=== PATIENT | female | born 1995 | race Caucasian/White ===

== ENCOUNTER → 2019-01-20 22:14 | Outpatient (CLI) | payer BC ==
[~2019-01-20 22:14] MED LIST: BUSPAR10 MG PO; FOLATE0.4 MG; PRENAVITE1 TAB PO; PROBIOTIC250 MG
== END | disposition home or self-care (01) ==
LOC: D.LDO 22:14
PROVIDERS: ATTEND Obstetrics & Gynecology
DX: O26.899 Other specified pregnancy related conditions, unspecified trimester (principal); Z3A.30 30 weeks gestation of pregnancy

== ENCOUNTER → 2019-02-03 11:21 | Outpatient (CLI) | payer BC | END | disposition home or self-care (01) | LOC: D.LDO 11:21 | PROVIDERS: ATTEND Obstetrics & Gynecology | DX: O16.3 Unspecified maternal hypertension, third trimester (principal); Z3A.32 32 weeks gestation of pregnancy ==

== ENCOUNTER 2019-03-04 21:12 | Outpatient (CLI) | payer BC ==
[2019-03-04 21:53] LABS: APPEARANCE CLEAR (CLEAR); BILIRUBIN NEGATIVE (NEGATIVE); COLOR YELLOW (YELLOW); GLUCOSE NEGATIVE (NEGATIVE); KETONE NEGATIVE (NEGATIVE); NITRITE NEGATIVE (NEGATIVE); PROTEIN NEGATIVE (NEGATIVE); SPECIFIC GRAVITY 1.015 (1.005-1.020); UROBILINOGEN NORMAL (NORMAL)
[2019-03-04 21:56] LABS: BACTERIA MODERATE /hpf (NONE SEEN); EPITHELIAL CELLS OCC /hpf (0-5); WHITE CELLS - URINE OCC /hpf (0-5)
== END 2019-03-04 22:55 | disposition home or self-care (01) ==
LOC: D.LDO 21:12 → D.LD 21:57 → D.LDO 22:55
PROVIDERS: ATTEND Obstetrics & Gynecology
DX: O16.3 Unspecified maternal hypertension, third trimester (principal); Z3A.36 36 weeks gestation of pregnancy

== ENCOUNTER → 2019-03-07 17:40 | Outpatient (CLI) | payer BC ==
[2019-03-07 18:17] LABS: APPEARANCE CLEAR (CLEAR); BILIRUBIN NEGATIVE (NEGATIVE); COLOR YELLOW (YELLOW); GLUCOSE NEGATIVE (NEGATIVE); KETONE NEGATIVE (NEGATIVE); NITRITE NEGATIVE (NEGATIVE); PROTEIN NEGATIVE (NEGATIVE); SPECIFIC GRAVITY 1.005 (1.005-1.020); UROBILINOGEN NORMAL (NORMAL)
== END | disposition home or self-care (01) ==
LOC: D.LDO 17:40
PROVIDERS: ATTEND Obstetrics & Gynecology
DX: O26.893 Other specified pregnancy related conditions, third trimester (principal); Z3A.36 36 weeks gestation of pregnancy

== ENCOUNTER 2019-03-13 10:59 | Inpatient (IN) | payer BC, MEDICAID ==
[~2019-03-13] VITALS: Ht 170.2 cm; Wt 89.4 kg
[2019-03-13 12:02] LABS: APPEARANCE CLEAR (CLEAR); COLOR YELLOW (YELLOW)
[2019-03-13 12:03] LABS: BILIRUBIN NEGATIVE (NEGATIVE); GLUCOSE NEGATIVE (NEGATIVE); KETONE NEGATIVE (NEGATIVE); NITRITE NEGATIVE (NEGATIVE); PROTEIN NEGATIVE (NEGATIVE); SPECIFIC GRAVITY 1.015 (1.005-1.020); UROBILINOGEN NORMAL (NORMAL)
[2019-03-13] MEDS ORDERED: PROTONIX40 MG PO (17:27)
[2019-03-13 17:28] VITALS: BP 126/75; Ht 170.2 cm; Wt 89.4 kg
[2019-03-13 17:40] LABS: HEMATOCRIT 38.4 % (36.0-48.0); HEMOGLOBIN 12.8 g/dL (12-16); MCH 27.7 pg (26.0-34.0); MCHC 33.3 g/dL (31.0-37.0); MCV 83.1 fL (80.0-100.0); MEAN PLATELET VOLUME 12.5 fL (7.4-10.4); RBC 4.62 10x6/uL (4.00-5.40); RDW 13.1 % (11.5-14.5); WBC 11.5 10x3/uL (4.8-10.8)
[2019-03-13 21:17] LABS: UDS - AMPHET NEGATIVE QUAL (NEGATIVE); UDS - BARB POSITIVE QUAL (NEGATIVE); UDS - BENZO NEGATIVE QUAL (NEGATIVE); UDS - COCAINE NEGATIVE QUAL (NEGATIVE); UDS - OPIATE NEGATIVE QUAL (NEGATIVE); UDS - PCP NEGATIVE QUAL (NEGATIVE); UDS - THC NEGATIVE QUAL (NEGATIVE)
--- NOTE | 2019-03-14 10:45 | NUR ---
PT UP TO BR TO VOID, VOIDS 250ML BLOODY URINE TO SPECIPAN, INSTRUCTIONS GIVEN AND PT DEMONSTRATING BETADINE/WATER PERIWASH, USE OF DERMAPLAST AND TUCKS PADS, ICE PACK TO PERINEUM. AMBULATORY TO ROOM 1257-A WITHOUT ANY DIFFICULTY, ROOM/TV ORIENTATION PROVIDED. QUESTIONS ANSWERED, COLA AND CUP OF ICE PROVIDED. CALL LIGHT IN EASY REACH, BED IN LOW POSITION, BED BRAKES LOCKED, SIDE RAILS UP X2. CONTINUE TO MONITOR.
--- NOTE | 2019-03-14 11:45 | NUR ---
NAD NOTED ON ROUNDS, RESP EVEN AND UNLABORED, FUNDUS FIRM AT U/2 AND MIDLINE, LOCHIA SCANT, NO CLOTS, NO NEEDS VOICED AT THIS TIME. CONTINUE TO MONITOR.
--- NOTE | 2019-03-14 12:45 | NUR ---
ROUNDS COMPLETED, ASSISTED OOB TO BR, VOIDS 250ML BLOODY URINE TO SPECIPAN AND COMPLETED BM WITHOUT DIFFICULTY, PERICARE PER PT, FRESH ICE CAP PROVIDED TO PERINEUM, LUNCH TRAY AT BS, NO OTHER NEEDS VOICED, FAMILY PRESENT IN ROOM. CALL LIGHT IN EASY REACH. WILL MONITOR.
--- NOTE | 2019-03-14 13:15 | NUR ---
ROUNDS COMPLETED, REVIEWED PLAN OF CARE, QUESTIONS ANSWERED. FAMILY AT BS. RESP EVEN AND UNLABORED, FUNDUS FIRM AT U/2 AND MIDLINE, LOCHIA RUBRA SCANT AMOUNT. WILL MONITOR FOR CHANGE IN CONDITION, CALL LIGHT IN EASY REACH, CONTINUE TO MONITOR.
--- NOTE | 2019-03-14 14:10 | NUR ---
INFANT PLACED IN NURSERY UNIT SECONDARY TO [place]. PT AND FAMILY MEMBER CURRENTLY IN NURSERY.
--- NOTE | 2019-03-14 15:25 | NUR ---
ROUNDS COMPLETED, NAD NOTED, RESP EVEN AND UNLABORED, NO NEEDS/CONCERNS VOICED AT THIS TIME, CONTINUE TO MONITOR.
--- NOTE | 2019-03-14 16:02 | NUR ---
pt c/o perineal pain and abdominal cramping, norco and ibuprofen provided with sips water. no other needs voiced at this time. voided 3rd time without difficulty, urine pale pink, 400 ml.
--- NOTE | 2019-03-14 17:00 | NUR ---
PAIN REASSESSMENT COMPLETED, PAIN 3/10 ON NUMERIC PAIN SCALE, CUP OF ICE PROVIDED UPON REQUEST, NO OTHER NEEDS VOICED AT THIS TIME, FAMILY AT BS.
--- NOTE | 2019-03-14 18:07 | NUR ---
ROUNDS COMPLETED, ASKED ABOUT BREAKFAST MENU, REVIEWED FACILITY PROTOCOLS, WILL ENTER SPECIAL REQUEST FOR AM BREAKFAST UNTIL SHE CAN COMPLETE MENU FOR THE DAY. STATES UNDERSTANDING. WILL CONTINUE TO MONITOR.
--- NOTE | 2019-03-14 19:18 | NUR ---
FAMILY IN ROOM EATING FOOD BROUGHT FROM OUTSIDE. PT. CURRENTLY IN BATHROOM HAVING JUST COMPLETED SHOWER. IV SITE RETAPED.
[2019-03-14 20:00] VITALS: BP 135/80
--- NOTE | 2019-03-14 20:00 | NUR ---
PT. IN BED ON BACK WITH HOB AT 45 DEGREES. SKIN WARM AND DRY. PT. TALKATIVE. FUNDUS FIRM U/1 AND LOCHIA RUBRA MOD. REPORTS BM TODAY. DENIES ANY PAIN AT THIS TIME. DISCUSS HER DELIVERY AND HOW THINGS WENT . PT. CHEERFUL TALKING ABOUT DELIVERY. DENIES ANY PAIN IN LOWER EXTREMITIES ALTHOUGH EDEMA PRESENT WHICH IS NON PITTING. FAMILY IN ROOM.
--- NOTE | 2019-03-14 21:30 | NUR ---
PT. IN NBN WITH INFANT THAT IS ON CARE UNIT. CHAIR PROVIDED FOR PT. TO SIT BESIDE 'S BED. PT. COMMENTED THAT INFANT LOOKS MUCH IMPROVED.
--- NOTE | 2019-03-14 22:25 | NUR ---
PAIN MED GIVEN FOR PAIN SCORE OF 5 OF 10 ON PAIN SCALE. PT. RELATES THAT SHE IS TIRED AND READY TO SLEEP. STATES SHE WAS ABLE TO HOLD HER BABY WHILE IN THE NURSERY AND SHE IS COMFORTABLE SHE WILL BE WILL CARED FOR SO SHE CAN REST. PT'S MOTHER ON SOFA TO SLEEP. ICE WATER PROVIDED TO PT. FUNDUS FIRM AND MIDLINE AT U/1. PAIN WAS DESCRIBED PERINEAL DISCOMFORT AGGRAVATED BY SITTING IN THE NURSERY WITH HER BABY. SIDE RAILS UP X2 AND CALL LIGHT WITHIN REACH.
--- NOTE | 2019-03-14 23:18 | NUR ---
PT. LYING ON RT SIDE LOOKING AT PHONE. STATES SHE IS MORE COMFORTABLE AND RATES PAIN A 1 OF 10 ON PAIN SCALE. DENIES ANY NEEDS AT THIS TIME.
--- NOTE | 2019-03-15 01:24 | NUR ---
LYING ON RT SIDE. RESPIRATIONS UNLABORED.
--- NOTE | 2019-03-15 03:35 | NUR ---
LYING IN RT TILT. RESPIRATIONS UNLABORED.
--- NOTE | 2019-03-15 04:13 | NUR ---
PAIN 6/10, PERINEAL BURING AND STINGING. MOTRIN AND NORCO GIVEN PER ORDER AND REQUEST. ICE WATER, PADS, AND ICE PACK PROVIDED PER PT REQUEST. DENIES ADDITIONAL NEEDS. NBN CALLED AND PT UPDATED ON INFANT. BED IN LOW POSITION WITH UPPER SIDE RAILS RAISED X2. CALL LIGHT AND PHONE WITHIN REACH. WILL CONTINUE TO MONITOR AND ASSIST PRN.
--- NOTE | 2019-03-15 05:06 | NUR ---
PAIN REASSESSMENT COMPLETED. RESTING WITH EYES CLOSED ON RIGHT SIDE. RESP REGULAR AND UNLABORED, NO S/S OF DISTRESS NOTED. BED IN LOW POSITION WITH UPPER SIDE RAILS RAISED X2. CALL LIGHT AND PHONE WITHIN REACH. WILL CONTINUE TO MONITOR AND ASSIST PRN.
--- NOTE | 2019-03-15 05:41 | NUR ---
DR. PURCELL MAKING ROUNDS ON PATIENT.
--- NOTE | 2019-03-15 06:10 | NUR ---
PT. IN NBN WITH INFANT. PT. STATES SHE SLEPT WELL UNTIL 4AM. MORE ACTIVE THIS AM. PT. ANXIOUS FOR TO BE ABLE TO GO TO HER ROOM FOR VISIT.
[2019-03-15 07:15] VITALS: BP 120/81
--- NOTE | 2019-03-15 07:15 | NUR ---
ASSESSMENT DONE. AWAKE AND SITTING UP IN BED. FAMILY AT BEDSIDE. DENIES NEEDS. FUNDUS UU/FIRM. SCANT LOCHIA NOTED ON PAD. EDEMA TO LOWER EXTREMITIES NOTED- ANKLES FEET.
[2019-03-15 07:44] LABS: BASOPHILS 0.1 % (0-2); EOSINOPHILS 0.8 % (0-7); HEMATOCRIT 33.6 % (36.0-48.0); HEMOGLOBIN 11.2 g/dL (12-16); IMMATURE GRANULOCYTES 0.4 % (0-5); LYMPHOCYTES 16.2 % (15-50); MCH 27.4 pg (26.0-34.0); MCHC 33.3 g/dL (31.0-37.0); MCV 82.2 fL (80.0-100.0); MEAN PLATELET VOLUME 12.8 fL (7.4-10.4); MONOCYTES 10.4 % (2-11); NEUTROPHILS 72.1 % (40-80); PLATELET COUNT 105 10x3/uL (130-400); RBC 4.09 10x6/uL (4.00-5.40); RDW 13.3 % (11.5-14.5)
--- NOTE | 2019-03-15 08:53 | NUR ---
RESTING WITH EYES CLOSED AT THIS TIME. RESP REG AND EVEN.
[2019-03-15 09:54] LABS: PLATELET ESTIMATE DECREASED; ROULEAUX OCC
--- NOTE | 2019-03-15 09:57 | NUR ---
ASLEEP. RESP REG AND EVEN. MOTHER AT BEDSIDE.
--- NOTE | 2019-03-15 10:23 | NUR ---
RINGS CALL LIGHT- REQUESTING PAIN MEDICATION. CO PAIN AT STITCHES- RATES PAIN A 5 ON SCALE OF 0-10. MEDS GIVEN.
--- NOTE | 2019-03-15 11:43 | NUR ---
PT STANDING IN NURSERY WITH . STATES THAT PAIN IS BETTER- RATES 1-2 ON SCALE OF 0-10. PT CHOOSES TO TAKE HER RHOGAM AND T-DAP BEFORE DISCHARGE TOMORROW.
--- NOTE | 2019-03-15 13:42 | NUR ---
RINGS CALL LIGHT- REQUESTING PAIN MEDICATION. CO PAIN- CRAMPING- RATES PAIN A 9 ON SCALE OF 0-10. MED GIVEN
--- NOTE | 2019-03-15 14:08 | NUR ---
SITTING IN NURSERY- HOLDING AND FEEDING . NO REQUESTS- DENIES NEEDS.
--- NOTE | 2019-03-15 14:46 | MORECARE ---
CASE MANAGEMENT DISCHARGE SUMMARY PATIENT: JAS GONZALES UNIT: [id number] ADM DATE: 03/13/19 AGE: 23 : [birth year] SEX: F ROOM/BED: D.1257 AUTHOR: NING RAMIREZ PHYSICIAN: REFERRING PHYSICIAN: KEENAN FLOR MD DATE OF SERVICE: 03/15/19 Discharge Plan Patient Name: [facility]AS [facility]AL[facility] 1995 Planned Disposition: Anticipated Discharge Date: Discharge Date: Expected LOS: Initial Reviewer: [id number] Initial Review Date: 03/15/2019 Generated: 03/15/19 3:46 pm Comments DCP- Discharge Planning Updated by JOY: Marlene Singh on 03/15/19 1:[address] Patient Name: JAS GONZALES Admission Status: Elective Accout number: [id number] Admission Date: 03-13-2019 : 1995 Admission Diagnosis: Attending: KEENAN FLOR Current LOS: 2 Anticipated DC Date: Planned Disposition: Primary Insurance: [facility] Discharge Planning Comments: CM CALLED FOR CONSULT FOR MOM BEING POSITIVE FOR barbiturates BUT PT WAS JUST IN L&D A FEW DAYS AGO AND WAS PRESCRIIBED SOME WHILE HERE SO CPS/DHS WAS NOT CALLED. 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 SHE LIVES WITH HER MOTHER AND STATES SHE DOES NOT TAKE DRUGS NOW BUT HAS TAKEN PILLS IN PAST. DENIES ANY CM NEEDS . CM WILL CONTINUE TO FOLLOW. Research Management Associate: Marlene Singh Patient Name: JAS GONZALES Page [id number] at 1446 All edits/amendments must be made on the electronic document DICTATION DATE: 03/15/19 144 PHYSICIAN SUPPORT COORDINATOR: JONATHAN 03/15/19 1445 RPT#: [id number] DC DATE: STATUS: ADM IN [facility] [address] [place] [address] END OF REPORT
--- NOTE | 2019-03-15 15:05 | NUR ---
REMAINS IN NURSERY. STATES IS DOING OK. LINENS CHANGED. STATES WILL SHOWER AFTERWHILE AND THAT SHOWERED LAST NIGHT. DENIES NEEDS AT THIS TIME.
[2019-03-15 16:30] VITALS: BP 122/76
--- NOTE | 2019-03-15 16:47 | NUR ---
SHOWER DONE. NOTED THAT FEET ARE MORE SWOLLEN THAN THIS AM. ENCOURAGED TO KEEP FEET ELEVATED MORE. PT STATES THAT UNABLE TO DO SO WHILE IN NURSERY. INFORMED TO LET ME KNOW WHEN GOES BACK AND WILL WORK ON PLAN TO ELEVATE LEGS MORE.
--- NOTE | 2019-03-15 17:05 | NUR ---
BACK TO NURSERY TO FEED BABY- FEET ELEVATED WHILE IN NURSERY.
--- NOTE | 2019-03-15 17:35 | NUR ---
SITTING UP IN BED EATING [place] FOOD -LEGS ELEVATED. STATES THAT PAIN IS BETTER- RATES 1-2 ON SCALE OF 0-10. DENIES NEEDS.
--- NOTE | 2019-03-15 19:04 | NUR ---
LAYING ON LT SIDE RESTING WITH EYES CLOSED. PT'S MOTHER RESTING ON COUCH. RESP REGULAR AND UNLABORED WITH NO S/S OF DISTRESS NOTED. PT NOT DISTURBED TO ALLOW FOR REST AT THIS TIME. PT'S MOTHER DENIES NEEDS. BED IN LOW POSITION WITH UPPER SIDE RAILS RAISED X2. CALL LIGHT AND PHONE WITHIN REACH.
[2019-03-15 19:35] VITALS: BP 118/75
--- NOTE | 2019-03-15 19:35 | NUR ---
SHIFT ASSESSMENT COMPLETED. VSS. PAIN 2-3/10, PERINEAL SORENESS, BURNING AND STINGING. DENIES NEED FOR INTERVENTION. FUNDUS FIRM, MIDLINE AND U2 WITH SMALL AMT RUBRA LOCHIA, NO CLOTS. DENIES PASSING CLOTS. 3+ BLE PITTING EDEMA, BLE CURRENTLY ELEVATED WITH PILLOWS WHILE IN BED, EDUCATED ON KEEPING PILLOWS OUT OF BEND OF KNEES, VERBALIZES UNDERSTANDING. REPORTS THAT EDEMA IS IMPROVED FROM EARLIER IN THE DAY. EDUCATED ON IMPORTANCE OF DIET HIGH IN LEAN PROTEIN TO PROMOTE HEALING AND TO DECREASE SWELLING. REPORTS THAT SHE IS VOIDING AND PASSING FLATUS WITHOUT DIFFICULTY. DENIES NEEDS. ICE WATER PROVIDED. STATES THAT SHE WILL BE GOING TO [facility] AT 2000 TO FEED AND PLATT WITH . BED IN LOW POSITION WITH UPPER SIDE RAILS RAISED X2. CALL LIGHT AND PHONE WITHIN REACH. PT'S MOTHER REMAINS AT BEDSIDE, SUPPORTIVE AND ATTENTIVE TO PT NEEDS.
--- NOTE | 2019-03-15 20:13 | NUR ---
IN NBN BONDING WITH . CHAIR PROVIDED TO PT TO ELEVATE BLE. DENIES NEEDS AT THIS TIME. WILL CONTINUE TO MONITOR. SUZETTE PEARL RN IN NBN AND WILL NOTIFY RN OF NEEDS.
--- NOTE | 2019-03-15 21:22 | NUR ---
REMAINS IN NBN BONDING WITH . PAIN 3/10 PERINEAL SORENESS. DENIES NEEDS. WILL CONTINUE TO MONITOR.
--- NOTE | 2019-03-15 22:34 | NUR ---
REMAINS IN NBN BONDING WITH . SKIN TO SKIN CURRENTLY. C/O PERINEAL BURNING AND STINGING, 02/06, REQUESTS NORCO AND MOTRIN, PROVIDED PER ORDER AND PT REQUEST. EDUCATED ON FALL PRECAUTIONS AND ASKING FOR ASSISTANCE IF FEELING DIZZY OR DROWSY, VERBALIZES UNDERSTANDING. SUZETTE PEARL RN REMAINS IN NBN. ICE WATER PROVIDED. DENIES ADDITIONAL NEEDS. WILL CONTINUE TO MONITOR.
--- NOTE | 2019-03-15 23:15 | NUR ---
NOW IN ROOM. LAYING IN BED ON CELL PHONE. PAIN REASSESSMENT COMPLETED, 2-12/07. DENIES NEEDS FOR ADDITIONAL INTERVENTION. DENIES NEEDS. PT'S MOTHER AT BEDSIDE, SUPPORTIVE AND ATTENTIVE TO PT AND HER NEEDS. ENCOURAGED PT TO REST. STATES THAT IS FIXING TO TRY TO SLEEP AND PLANS TO RETURN TO NBN FOR NEXT FEEDING. BED IN LOW POSITION WITH UPPER SIDE RAILS RAISED X2. CALL LIGHT AND PHONE WITHIN REACH. WILL CONTINUE TO MONITOR AND ASSIST PRN.
--- NOTE | 2019-03-16 00:34 | NUR ---
LAYING ON LT SIDE RESTING WITH EYES CLOSED, RESP REGULAR AND UNLABORED, NO S/S OF DISTRESS NOTED. PT MOTHER REMAINS AT BEDSIDE RESTING ON COUCH. BED IN LOW POSITION WITH UPPER SIDE RAILS RAISED X2. WILL CONTINUE TO MONITOR.
--- NOTE | 2019-03-16 02:08 | NUR ---
IN NBN FEEDING AND BONDING WITH . COKE PROVIDED PER PT REQUEST. PAIN 3/10, PERINEAL SORENESS, DENIES NEED FOR INTERVENTION. WILL NOTIFY STAFF OF NEEDS. WILL CONTINUE TO MONITOR.
--- NOTE | 2019-03-16 04:28 | NUR ---
LAYING ON LT SIDE, RESTING WITH EYES CLOSED. RESP REGULAR AND UNLABORED, NO S/S OF DISTRESS NOTED. PT'S MOTHER RESTING ON COUCH AT BEDSIDE. BED IN LOW POSITION WITH UPPER SIDE RAILS RAISED X2. CALL LIGHT AND PHONE WITHIN REACH. WILL CONTINUE TO MONITOR AND ASSIST PRN.
--- NOTE | 2019-03-16 06:10 | NUR ---
IN NBN BONDING WITH . PAIN 5/10, PERINEAL BURNING AND STINGING. REQUESTS NORCO AND MOTRIN, GIVEN PER REQUEST AND ORDER. COKE PROVIDED PER REQUEST. DENIES ADDITIONAL NEEDS. FALL PRECAUTIONS REINFORCED WITH PT, VERBALIZED UNDERSTANDING, DENIES ADDITIONAL NEEDS. WILL CONTINUE TO MONITOR.
--- NOTE | 2019-03-16 07:14 | NUR ---
THIS RN TO NURSERY WHERE PT IS HOLDING INFANT FOR SHIFT REPORT. PT SITTING UP IN CHAIR, HOLDING , BONDING WELL. AAOx3, RATES PAIN 1/10 AT THIS TIME, PRESSURE IN PERINEUM. PT DENIES ANY NEEDS. PT STATES SHE WANTS TO HOLD UNTIL TIME FOR HER BATH. PT INSTRUCTED TO CALL WHEN BACK TO ROOM FOR SHIFT ASSESSMENT TO BE DONE. UNDERSTANDING VERBALIZED. WILL CONT TO MONITOR.
[2019-03-16 08:10] VITALS: BP 135/81
--- NOTE | 2019-03-16 08:10 | NUR ---
PT CALLS OUT [facility] LIGHT STATING SHE IS BACK TO BED AND READY FOR ASSESSMENT. THIS RN TO ROOM. PT SITTING UP IN BED EATING BREAKFAST. PT DENIES PAIN EXCEPT MILD DISCOMFORT IN PERINEUM AT STITCHES. PT DENIES NEED FOR ICE PACK FOR PERINEUM. SHIFT ASSESSMENT COMPLETED, VSS, SEE FLOWSHEET FOR DOC. POC DISCUSSED WITH PT, UNDERSTANDING VERBALIZED. FF, ML, U/U. SMALL RUBRA LOCHIA, NO CLOTS. PT INSTRUCTED ON S/S TO REPORT REGARDING LOCHIA AND CLOTS, UNDERSTANDING VERBALIZED. 3+ SWELLING NOTED TO LE BILAT, NON PITTING. PT ENCOURAGED TO DRINK WATER AND REST IN BED WITH FEET ELEVATED, PT HAS BEEN UP TO NURSERY MOST OF NIGHT. UNDERSTANDING VERBALIZED. PT DENIES N/V OR ANY OTHER S/S. PT PROVIDED WITH PADS, PANTIES, TOWELS, AND BETADINE PER REQUEST, DENIES FURTHER NEEDS. SRUx2, CL IN REACH. PT MOTHER IN ROOM. WILL CONT TO MONITOR.
--- NOTE | 2019-03-16 09:35 | NUR ---
THIS RN TO ROOM FOR PT CHECK. PT SITTING UP IN BED, FEEDING BOTTLE OF FORMULA. PT DENIES PAIN OR ANY NEEDS, VISITING WITH FAMILY AT BEDSIDE. SRUx2, CL IN REACH. WILL CONT TO MONITOR.
--- NOTE | 2019-03-16 10:01 | NUR ---
PT ADMIN SCHEDULED PROZAC PROVIDED FROM PHARMACY. PT DENIES NEEDING PAIN MED, STATES SHE WANTS TO WAIT UNTIL CLOSER TO 1230 FOR IBUPROFEN DOSE. PT INSTRUCTED TO CALL IF NEEDS PAIN MED SOONER. UNDERSTANDING VERBALIZED. PT SITTING UP IN BED, VISITING WITH FAMILY. [id number], CL IN REACH. WILL CONT TO MONITOR.
--- NOTE | 2019-03-16 11:50 | NUR ---
THIS RN TO ROOM FOR PT CHECK. PT SITTING UP IN BED, HOLDING AND FEEDING WITH BOTTLE. PT DENIES ANY NEEDS AT THIS TIME, STATES IS JUST WORKING ON GETTING INFANTS FEEDS ACCOMPLISHED. FAMILY IN ROOM VISITING WITH PT. APARNA Falcon IN REACH. WILL CONT TO MONITOR.
--- NOTE | 2019-03-16 12:33 | NUR ---
THIS RN TO ROOM FOR PT CHECK. PT SITTING UP IN BED EATING LUNCH. PT RATES PAIN 4-5/10, REQUESTS NORCO AND MOTRIN FOR PAIN. MEDS ADMIN TO PT ORDERED, SEE EMAR FOR DOC. PT DENIES ANY OTHER S/S AT THIS TIME. FRESH ICE WATER GIVEN. PT VISITING WITH FAMILY. SRUx2, CL IN REACH. WILL CONT TO MONITOR.
--- NOTE | 2019-03-16 13:07 | NUR ---
THIS RN TO ROOM FOR PAIN REASSESSMENT AND ADMIN COLACE AND PROBIOTIC, SEE EMAR FOR DOC. PT DENIES PAIN OR ANY NEEDS AT THIS TIME. DR FLOR ROUNDING, DISCUSSING POC WITH PT.
--- NOTE | 2019-03-16 14:53 | NUR ---
PT UP TO BR, REQUESTING DERMAPLAST AND PREPARATION H WIPES. ADMIN TO PT REQUESTED. WILL RETURN TO CHECK VS.
[2019-03-16 15:02] VITALS: BP 133/84
--- NOTE | 2019-03-16 15:02 | NUR ---
VSS, SEE FLOWSHEET. PT DENIES NEEDS.
--- NOTE | 2019-03-16 15:45 | NUR ---
THIS RN DISCUSSING POC WITH PT AND OPTIONS DISCUSSED WITH DR FLOR TODAY REGARDING ROOMING IN VS REMAINING INPATIENT STATUS TONIGHT. PT STATES SHE WOULD LIKE TO ROOM IN GIVEN CONCERNS REGARDING INSURANCE NOT COVERING ANOTHER NIGHT'S STAY. PT STATES "I WILL BE HERE WITH MY BABY EITHER WAY." DR FLOR PHONED AND NOTIFIED, GIVES ORDER TO DISCHARGE TO ROOM IN WITH FOLLOW UP TO BE IN APPROX 4 WEEKS. WILL PROCEED WITH DISCHARGE ORDERED AND REQUESTED.
[2019-03-16] MEDS ORDERED: HYDROCODON-ACE1 EAC7 PO (16:33)
[2019-03-16] MEDS ORDERED: IBUPROFEN600 MG PO (16:33)
--- NOTE | 2019-03-16 17:30 | NUR ---
PT PROVIDED WITH PRESCRIPTION FOR PAIN CONTROL POST D/C TO HOME, PT'S MOTHER TO DROP OFF TO BE FILLED. PT REQUESTS TO HAVE PRESCRIPTION FOR PROZAC CALLED IN WELL. DR FLOR PHONED AND NOTIFIED, ORDER RECEIVED TO CALL IN 60DAY SUPPLY AT PT'S CURRENT DOSAGE.
--- NOTE | 2019-03-16 17:52 | NUR ---
PROZAC CALLED IN ORDERED BY DR FLOR TO [facility].
--- NOTE | 2019-03-16 18:43 | NUR ---
PT ADMIN ORDERED RHOGAM AND ADACEL, WELL MOTRIN AND NORCO REQUESTED FOR PAIN RATED 5/10 AT PERINEUM. SEE EMAR FOR DOC. WILL PROCEED WITH D/C INSTRUCTIONS.
--- NOTE | 2019-03-16 19:00 | NUR ---
DISCHARGE INSTRUCTIONS GIVEN, WELL ROOMING IN AGREEMENT DISCUSSED AND REVIEWED. UNDERSTANDING VERBALIZED AND PT DENIES QUESTIONS. PT SIGNS CHART COPIES. TRASH IN ROOM EMPTIED PER PT REQUEST. PT DENIES FURTHER NEEDS, UP TO BR AT THIS TIME. PT MOTHER IN ROOM. RESTING IN [place].
[2019-03-17 03:08] LABS: RAPID PLASMA REAGIN Non Reactive (Non Reactive)
== END 2019-03-16 19:00 | disposition home or self-care (01) | DRG 807 ==
LOC: D.LDO 10:59 → D.LD 16:53
PROVIDERS: ADMIT Obstetrics & Gynecology; ATTEND Obstetrics & Gynecology
PROC: 10907ZC Drainage of Amniotic Fluid, Therapeutic from Products of Conception, Via Natural or Artificial Opening (ICD-10-PCS; principal; 2019-03-14)
PROC: 10E0XZZ Delivery of Products of Conception, External Approach (ICD-10-PCS; 2019-03-14)
DX: O98.52 Other viral diseases complicating childbirth (principal); Z37.0 Single live birth; O99.344 Other mental disorders complicating childbirth; F41.8 Other specified anxiety disorders; Z3A.37 37 weeks gestation of pregnancy; O99.334 Smoking (tobacco) complicating childbirth

== ENCOUNTER 2019-09-03 16:21 | Emergency (ER) | payer BC ==
[~2019-09-03] VITALS: Ht 167.6 cm; Wt 72.7 kg
[~2019-09-03 16:21] MED LIST changes: +HYDROCODON-ACE1 EAC7 PO; +IBUPROFEN600 MG PO; +PROTONIX40 MG PO
[2019-09-03 16:41] VITALS: Ht 167.6 cm; Wt 72.7 kg
[2019-09-03] MEDS ORDERED: XANAX0.5 MG PO (16:43)
[2019-09-03] MEDS ORDERED: PROZAC20 MG PO (16:43)
[2019-09-03] MEDS ORDERED: PROPRANOLOL HCL20 MG PO (16:44)
[2019-09-03 17:44] LABS: APPEARANCE CLEAR (CLEAR); BILIRUBIN NEGATIVE (NEGATIVE); COLOR STRAW (YELLOW); GLUCOSE NEGATIVE (NEGATIVE); HCG URINE NEGATIVE (NEGATIVE); KETONE NEGATIVE (NEGATIVE); NITRITE NEGATIVE (NEGATIVE); PROTEIN NEGATIVE (NEGATIVE); SPECIFIC GRAVITY 1.005 (1.005-1.020); UROBILINOGEN NORMAL (NORMAL)
[2019-09-03 17:51] LABS: BASOPHILS 0.5 % (0-2); EOSINOPHILS 0.7 % (0-7); HEMATOCRIT 43.5 % (36.0-48.0); HEMOGLOBIN 14.3 g/dL (12-16); IMMATURE GRANULOCYTES 0.4 % (0-5); LYMPHOCYTES 24.6 % (15-50); MCH 27.7 pg (26.0-34.0); MCHC 32.9 g/dL (31.0-37.0); MCV 84.1 fL (80.0-100.0); MEAN PLATELET VOLUME 11.7 fL (7.4-10.4); MONOCYTES 5.5 % (2-11); NEUTROPHILS 68.3 % (40-80); RBC 5.17 10x6/uL (4.00-5.40); WBC 7.3 10x3/uL (4.8-10.8)
[2019-09-03 17:52] LABS: PLATELET COUNT 200 10x3/uL (130-400)
[2019-09-03 18:08] LABS: CALC OSMOLALITY 278 mosm/kg (275-300); CARBON DIOXIDE 23.4 mmol/L (21.0-32.0); CHLORIDE - SERUM 105 mmol/L (98-107); CREATININE - SERUM 0.5 mg/dL (0.6-1.3); GLUCOSE 109 mg/dL (74-106); POTASSIUM - SERUM 3.9 mmol/L (3.5-5.1); SODIUM 141 mmol/L (136-145); UREA NITROGEN 3 mg/dL (7-18); eGFR NON AFRICAN AMERICAN > 90 mL/min (90-120)
[2019-09-03 18:17] LABS: ALBUMIN 4.2 g/dL (3.4-5.0); ALKALINE PHOSPHATASE 92 U/L (46-116); ALT (SGPT) 19 U/L (10-68); AMYLASE - SERUM 46 U/L (25-115); BILIRUBIN - TOTAL 0.33 mg/dL (0.2-1.3); LIPASE 88 U/L (73-393); PROTEIN - SERUM 7.5 g/dL (6.4-8.2); TROPONIN-I < 0.017 ng/mL (0.000-0.060)
[2019-09-03 22:18] VITALS: BP 122/77
== END 2019-09-03 22:18 | disposition home or self-care (01) ==
LOC: D.ER 16:21
PROVIDERS: Family Medicine
DX: N93.8 Other specified abnormal uterine and vaginal bleeding (principal); K21.9 Gastro-esophageal reflux disease without esophagitis; F32.9 Major depressive disorder, single episode, unspecified

== ENCOUNTER 2019-09-11 06:50 | Day surgery (SDC) | payer BC, MEDICAID ==
[2019-09-09 14:25] LABS: BASOPHILS 0.7 % (0-2); EOSINOPHILS 3.6 % (0-7); HEMATOCRIT 41.4 % (36.0-48.0); HEMOGLOBIN 13.4 g/dL (12-16); LYMPHOCYTES 35.5 % (15-50); MCH 27.5 pg (26.0-34.0); MCHC 32.4 g/dL (31.0-37.0); MCV 84.8 fL (80.0-100.0); MEAN PLATELET VOLUME 10.6 fL (7.4-10.4); MONOCYTES 7.5 % (2-11); NEUTROPHILS 52.7 % (40-80); PLATELET COUNT 204 10x3/uL (130-400); RBC 4.88 10x6/uL (4.00-5.40); RDW 12.9 % (11.5-14.5); WBC 4.1 10x3/uL (4.8-10.8)
[~2019-09-11] VITALS: Ht 167.6 cm; Wt 68.9 kg
--- NOTE | ~2019-09-11 | OP ---
PATIENT NAME: JAS GONZALES MEDICAL RECORD: [id number] :[birth year] LOCATION:D.OPS ADMISSION DATE: SURGEON: KEENAN JIANG MD DATE OF OPERATION: 09/11/2019 PREOPERATIVE DIAGNOSIS: High-grade cervical dysplasia. POSTOPERATIVE DIAGNOSIS: High-grade cervical dysplasia. PROCEDURE: Loop electrosurgical excision procedure. SURGEON: Keenan Jiang MD INTRAVENOUS FLUIDS: Per anesthesia record. ESTIMATED BLOOD LOSS: Minimal. ANESTHESIA: General by LMA. FINDINGS: Grossly normal-appearing cervix, vagina and vulva. SPECIMENS: Cervical cone biopsy. PROCEDURE IN DETAIL: The patient was taken to the operating room where general anesthesia was achieved without difficulty. The patient was then prepped and draped in normal sterile fashion in the dorsal lithotomy position in the [facility]. Following prep and drape, the bladder was drained of approximately 150 cc of clear yellow urine. At this point, an insulated Graves speculum was placed in the vagina. Cervix was identified. A 1 x 1 cm loop electrode was then used to excise the transitional zone of the cervix to a depth of approximately 8-9 mm. Small bleeding was noted in the cervical crater site following removal of the biopsy and this was cauterized with the Bovie cautery. The entire cervical crater was then cauterized and patency of the cervical os was confirmed using a uterine sound. Monsel solution was placed on the cervical crater site and good hemostasis was noted. The instruments including the speculum were removed. The patient tolerated the procedure well, was transported to postanesthesia recovery stable without incident. TRANSINT:[id number] Voice Confirmation ID: [id number] DOCUMENT ID: [id number] KEENAN JIANG MD CC: [id number] DICTATION DATE: 09/11/19 1158 DRILL SETUP OPERATOR: 09/11/19 1336 [facility] [address] [place] [address]
[~2019-09-11 06:50] MED LIST changes: +ED-SPAZ0.125 MG PO; +OMNICEF300 MG PO; +PROPRANOLOL HCL20 MG PO; +PROZAC20 MG PO; +XANAX0.5 MG PO
[2019-09-11 08:01] VITALS: BP 103/56; Ht 167.6 cm; Wt 68.9 kg
[2019-09-11 08:10] LABS: HCG URINE NEGATIVE (NEGATIVE)
== END 2019-09-11 13:55 | disposition home or self-care (01) ==
LOC: D.OPS 06:50 → D.PAN 07:30 → D.OPS 07:30 → D.PAN 09:00 → D.OPS 09:00
PROVIDERS: ATTEND Obstetrics & Gynecology
DX: N76.0 Acute vaginitis (principal); R87.613 High grade squamous intraepithelial lesion on cytologic smear of cervix (HGSIL); F41.9 Anxiety disorder, unspecified; K21.9 Gastro-esophageal reflux disease without esophagitis